=== PATIENT | female | born 1990 | race Caucasian/White ===

== ENCOUNTER 2023-10-16 14:54 | Outpatient (REF) | payer BC, SELFPAY ==
--- NOTE | ~2023-10-16 | MR_ITS ---
EXAMINATION: MR BRAIN WITHOUT AND WITH CONTRAST CLINICAL INFORMATION: Seizure disorder COMPARISON: None available. TECHNIQUE: Multiplanar, multisequence MRI of the brain was obtained before and after the intravenous administration of 10 mL Gadavist. FINDINGS: No acute intracranial hemorrhage or infarct. Dedicated coronal oblique imaging through the temporal lobes demonstrate symmetric size, signal intensity, and morphological appearance of the hippocampal formations. No evidence for mesial temporal sclerosis. No abnormal intra-axial enhancement. No edema, midline shift or hydrocephalus. No acute extra-axial fluid collections. The osseous structures are unremarkable. The pituitary gland, pineal gland and remaining midline structures are unremarkable. No orbital pathology. The paranasal sinuses and mastoid air cells are clear. MR/MR head/brain wo/w con IMPRESSION: Normal brain MRI. Electronically signed by: Shira Nino MD 11/14/2023 03:18 PM EDT
[2023-10-16] MEDS: gadobutroL 10 ML VIAL IVPUSH (16:11)
== END 2023-10-16 14:55 | disposition home or self-care (01) ==
LOC: HO.MRI 14:54
PROVIDERS: PCP Internal Medicine; Visit Provider Psychiatry & Neurology Neurology
DX: G40.909 Epilepsy, unspecified, not intractable, without status epilepticus (principal)
CPT/HCPCS: 70553; A9585